=== PATIENT | female | born 1950 | race Two or more races ===

== ENCOUNTER 2024-08-14 06:06 | Day surgery (SDC) | payer OTHER ==
[2024-08-12 10:45] VITALS: BP 130/78
[2024-08-12 10:59] LABS: PH,URINE 5.5 (5.0-8.0); URINE APPEARANCE Clear; URINE BILIRRUBIN Negative (NEGATIVE); URINE BLOOD Negative; URINE COLOR Yellow; URINE GLUCOSE Negative (NEGATIVE); URINE KETONE Negative (NEGATIVE); URINE LEUKOCYTE Negative; URINE NITRATE Negative; URINE PROTEIN Negative (NEGATIVE); URINE UROBILINOGEN 0.2 E.U./dl
[2024-08-12 11:03] LABS: MEAN CELL VOLUME 88.3 fL (80.00-100.00); MEAN CORPUSCULAR HEMOGLOBIN 30.3 pg (27.00-32.0); MEAN CORPUSCULAR HGB CONC 34.3 g/dl (32.0-36.0); PLATELET COUNT 202 K/uL (150-450); RED CELL DISTRIBUTION WIDTH 13.3 % (11.5-14.5)
[2024-08-12 11:19] LABS: URINE EPITHELIAL CELLS 1.2 uL (0.0-38.8); URINE WBC 0.4 uL (0.0-23.2)
[2024-08-12 11:25] LABS: PARTIAL THROMBOPLASTIN TIME 28.1 SECONDS (22.0-34.0); PROTHROMBIN TIME 10.9 SECONDS (9.0-11.5)
[2024-08-12 11:53] LABS: BILIRUBIN TOTAL 0.55 mg/dL (0.3-1.2); CALCIUM 9.5 mg/dL (8.5-10.1); CREATININE SERUM 0.84 mg/dL (0.55-1.02); GFR 66.1; GLOBULINA 3.2 G/DL (2.4-3.5); POTASSIUM 4.28 mEq/L (3.5-5.1); TOTAL PROTEIN 7.2 gm/dL (6.4-8.2)
[~2024-08-14] VITALS: Ht 157.5 cm; Wt 60.3 kg
[~2024-08-14 06:06] MED LIST: CLARITIN10 M1 PO; LIPITOR20 MG PO; MONTELUKAST SOD10 MG PO; RESTORIL30 M1 PO; SYNTHROID75 MCG PO
[2024-08-14] MEDS ORDERED: LIDOCAINE HCL 1%/EPINEPHRINE 20ML VIAL IJ ONE (09:45)
[2024-08-14] MEDS ORDERED: KETOROLAC TROMETHAMINE 30 MG VIAL IJ ONE (09:45)
[2024-08-14] MEDS ORDERED: CEFAZOLIN SODIUM 1,000 MG VIAL IV ONE (09:45)
[2024-08-14] MEDS ORDERED: KETOROLAC TROMETHAMINE 30 MG VIAL IV ONE (09:45)
[2024-08-14] MEDS ORDERED: BUPIVACAINE HCL 30 ML VIAL IV ONE (09:45)
[2024-08-14] MEDS ORDERED: SUGAMMADEX SODIUM 200 MG/2 ML VIAL IV ONE (10:45)
[2024-08-14] MEDS ORDERED: MORPHINE SULFATE 4 MG/ML VIAL IV ONE ×2 (12:05→12:35)
== END 2024-08-14 13:20 | disposition home or self-care (01) ==
LOC: CIR.AMB 06:06
PROVIDERS: ATTEND Orthopaedic Surgery
DX: M75.121 Complete rotator cuff tear or rupture of right shoulder, not specified as traumatic (principal); M24.111 Other articular cartilage disorders, right shoulder; M75.21 Bicipital tendinitis, right shoulder